=== PATIENT | female | born 1950 | race Caucasian/White ===

== ENCOUNTER 2021-04-26 23:04 | Emergency (ER) | payer OTHER ==
[~2021-04-26] VITALS: Ht 167.6 cm; Wt 63.5 kg
--- NOTE | 2021-04-26 23:26 | NUR ---
BIBSELF C/O LEFT FACIAL SWELLING "GLAND SWELLING" PER PATIENT. SINCE 2x HOURS AGO. PT A/OX4. TOLERATING R/A WELL
--- NOTE | 2021-04-26 23:45 | NUR ---
INITIATED IV R WRIST #18G S/L
[2021-04-26 23:59] LABS: BASOPHILS # (AUTO) 0.1 K/uL (0.0-0.2); BASOPHILS % (AUTO) 1.7 % (0.0-2.0); EOSINOPHILS % (AUTO) 1.5 % (0.0-6.0); HEMATOCRIT 37 % (33-45); HEMOGLOBIN 12.4 g/dL (11.5-14.8); LYMPHOCYTES # (AUTO) 2.1 K/uL (0.8-4.8); MEAN CORPUSCULAR HGB CONC 34 g/dl (31.0-36.0); MEAN CORPUSCULAR VOLUME 96 fL (82-100); MONOCYTES # (AUTO) 0.8 K/uL (0.1-1.30); MONOCYTES % (AUTO) 12.1 % (2.0-12.0); NEUTROPHILS # (AUTO) 3.2 K/uL (1.8-8.9); NEUTROPHILS % (AUTO) 51.7 % (43.0-81.0); PLATELET COUNT (AUTO) 196 K/uL (150-450); RED BLOOD CELL COUNT(AUTO) 3.83 MIL/uL (4.0-5.2); WHITE BLOOD COUNT (AUTO) 6.2 K/uL (4.3-11.0)
[2021-04-27 00:05] LABS: CALCIUM, SERUM 9.3 mg/dL (8.5-10.1); CREATININE 0.7 mg/dL (0.6-1.3); POTASSIUM 3.7 mmol/L (3.5-5.1)
[2021-04-27] MEDS ORDERED: IV NS 0.9% 250 ML IV ONE (00:15)
[2021-04-27] MEDS ORDERED: IOHEXOL-300 100 ML VIAL IV ONE (00:15)
--- NOTE | 2021-04-27 00:20 | NUR ---
PT TAKEN TO CT
--- NOTE | 2021-04-27 00:26 | NUR ---
PT RETURNED TO ER BED [address]
[2021-04-27] MEDS ORDERED: CLIN300C12 PO (01:15)
[2021-04-27] MEDS ORDERED: IBUP-1957 PO (01:15)
--- NOTE | 2021-04-27 01:22 | NUR ---
Patient discharged to home in stable condition. Written and verbal after care instructions given. Patient verbalizes understanding of instruction. PT AMBULATORY
[2021-04-27 01:23] VITALS: BP 149/81
== END 2021-04-27 01:24 | disposition home or self-care (01) ==
LOC: ER 23:04
DX: K11.20 Sialoadenitis, unspecified (principal); M06.9 Rheumatoid arthritis, unspecified; Z98.890 Other specified postprocedural states
CPT/HCPCS: 36415; 70491; 80048; 85025; 99285; J7050; Q9967